=== PATIENT | female | born 1985 | race Caucasian/White ===

== ENCOUNTER → 2017-01-05 15:52 | Emergency (ER) | payer MEDICARE ==
[2017-01-05 16:04] VITALS: BP 134/76
== END | disposition home or self-care (01) ==
LOC: ED 15:52
DX: R60.9 Edema, unspecified (principal); Z53.21 Procedure and treatment not carried out due to patient leaving prior to being seen by health care provider

== ENCOUNTER 2017-01-07 08:10 | Emergency (ER) | payer MEDICARE ==
[2017-01-07] MEDS ORDERED: Ketorolac INJ* 30 MG/ML 1 ML VIAL IM ONE (09:30)
[2017-01-07] MEDS ORDERED: Cephalexin CAP* 500 MG PO ONE (09:31)
--- NOTE | 2017-01-07 09:41 | ED ---
Skin Complaint - HPI Summary HPI Summary: 31 female presents with complaints of a head abscess that has been on going for the past 5 days. Patient states she has a habit of "picking at her head" when she gets nervous. She has had similar symptoms to this in the past and diagnosed with MRSA. Patient seen at [facility] yesterday and given Bactrim. She has taken 1 days dose, and took one this morning. Patient denies fever/chills. Discharge at times. States the pain is unbearable. Her prescribed percocet for her back is not helping her. She describes the pain to be burning, sharp and on the entire right side of her head/face where wound is located. Admits to right ear pain and a swollen lymph node on the right side. No other complaints at this time. No other medical problems other than chronic back issues and anxiety. Denies rash elsewhere. Denies numbness/tingling, nausea/ vomiting. - History of Current Complaint Chief Complaint: EDGeneral Time Seen by Provider: 01/07/17 09:11 Stated Complaint: ABCESS ON HEAD Hx Obtained From: Patient Hx Last Menstrual Period: OBLATION--CURRENTLY SPOTTING Onset/Duration: Started Days Ago, Still Present, Worse Since Skin Exposure Onset/Duration: Days Ago Timing: Constant Onset Severity: Moderate Current Severity: Severe Pain Intensity: 10 Pain Scale Used: 0-10 Numeric Skin Location: Discrete - right posterior parietal lobe of head Character: Swelling, Pruritus, Redness, Raised, Painful Aggravating Symptom(s): Touch Alleviating Symptom(s): Nothing Associated Signs & Symptoms: Negative - Allergy/Home Medications Allergies/Adverse Reactions: Allergies Allergy/AdvReac Type Severity Reaction Status Date / Time Adhesive Tape Allergy Itching Verified 01/07/17 08:37 Home Medications: Home Medications Citalopram TAB* [Celexa TAB*] 1 tab PO DAILY 01/07/17 [History Confirmed ] Sulfamethox/Trimethoprim DS* [Bactrim DS 800/160 TAB*] 1 tab PO BID 01/07/17 [ History Confirmed 01/07/17] PMH/Surg Hx/FS Hx/Imm Hx Endocrine/Hematology History: Denies: Hx Diabetes Cardiovascular History: Denies: Hx Hypertension Respiratory History: Denies: Hx Asthma Musculoskeletal History: Reports: Hx Back Problems Psychiatric History: Reports: Hx Anxiety - Surgical History Surgery Procedure, Year, and Place: aBLATION. TUBAL LIGATION. GASTRIC BYPASS. tympanoplasty - Immunization History Immunizations Up to Date: Yes Infectious Disease History: Yes Infectious Disease History: Reports: Hx of Known/Suspected MRSA Denies: Traveled Outside the [place] in Last 30 Days - Family History Known Family History: Positive: None - Social History Alcohol Use: None Substance Use Type: Reports: None Smoking Status (MU): Never Smoked Tobacco Review of Systems Constitutional: Negative Positive: Other - right eye pain due to radiation of pain per patient Positive: Nasal Discharge - right nare congestion, Other - neck pain, right side , swollen lymph node due to infection on head per patient Cardiovascular: Negative Respiratory: Negative Gastrointestinal: Negative Positive: Rash - head abscess Neurological: Negative All Other Systems Reviewed And Are Negative: Yes Physical Exam Triage Information Reviewed: Yes Vital Signs On Initial Exam: Initial Vitals Temp Pulse Resp BP Pulse Ox 97.3 F 90 20 135/73 100 01/07/17 08:15 01/07/17 08:15 01/07/17 08:15 01/07/17 08:15 01/07/17 08:15 Vital Signs Reviewed: Yes Appearance: Positive: Well-Appearing, Pain Distress - mild to moderate with palpation of carbuncle Skin: Positive: Warm, Skin Color Reflects Adequate Perfusion, Dry, Erythema @ - appears to be a infected spider bite versus furuncle on posterior parietal of scalp with erythema. no discharge at this time, crusted at head. very firm and tender to touch. not warm. no fluctuance. about the size of a gracia. no rash or surrounding cellulitis elsewhere.. Negative: Numb, Soft, Pale Head/Face: Positive: Normal Head/Face Inspection, Scalp - read note above Eyes: Positive: EOMI, MIKE, Conjunctiva Clear ENT: Positive: Hearing grossly normal, Pharynx normal, Nasal congestion, TMs normal. Negative: Nasal drainage, TM bulging, TM dull, TM red - no rash in ears , scarring on TM patient had tubes as a child, Tonsillar swelling, Tonsillar exudate, Trismus, Muffled/hoarse voice Dental: Positive: Cervical Lymphadenopathy - right posterior cervical. Negative : Percussion Tenderness @ Neck: Positive: Supple, Nontender Respiratory/Lung Sounds: Positive: Clear to Auscultation, Breath Sounds Present. Negative: Rales, Rhonchi, Wheezes Cardiovascular: Positive: Normal, RRR, Pulses are Symmetrical in both Upper and Lower Extremities. Negative: Murmur, Rub Musculoskeletal: Positive: Normal, Strength/ROM Intact Neurological: Positive: Normal, Alert, Oriented to Person Place, Time, CN Intact II-III, NV Bundle Intact Distally, Normal Gait Psychiatric: Positive: Affect/Mood Appropriate, Anxious - [place] Coma Scale Best Eye Response: 4 - Spontaneous Best Motor Response: 6 - Obeys Commands Best Verbal Response: 5 - Oriented Coma Scale Total: 15 Diagnostics - Vital Signs Vital Signs Temp Pulse Resp BP Pulse Ox 01/07/17 08:30 90 126/73 98 01/07/17 08:29 94 97 01/07/17 08:28 124/79 01/07/17 08:21 99.0 F 93 16 124/79 100 01/07/17 08:15 97.3 F 90 20 135/73 100 - Laboratory Lab Statement: Any lab studies that have been ordered have been reviewed, and results considered in the medical decision making process. Course/Dx - Course Course Of Treatment: given pain management with toradol and dose of keflex while in ED. wound is not ready for I&D and may not be necessary. possibly infected spider bite versus furuncle, no fluctuance or drainage. unable to culture. with hx of MRSA continue bactrim given at [facility] and add keflex. continue tylenol and pain medication already prescribed for discomfort. educated on good hygeine, stop picking, keep covered if unable to stop picking at. warm compresses multiple times daily. follow up with pcp. aware of worsening signs and symptoms. no concern for other emergent etiology. does not appear to be a shingles, tinea, urticaria. normal PE findings other than infected wound/ furuncle. follow up within 3 days for recheck - Differential Diagnoses - Skin Complaint Differential Diagnoses: Abscess, Cellulitis, Contact Dermatitis, MRSA, Tinea - Diagnoses Provider Diagnoses: Infected wound, Furuncle of head or scalp Discharge - Discharge Plan Condition: Stable Disposition: HOME Prescriptions: Cephalexin CAP* [Keflex CAP*] 500 mg PO TID #20 cap Patient Education Materials: Furunculosis and Carbunculosis (ED), Warm Compress or Soak (ED) Referrals: Lorraine Carter MD [Primary Care Provider] - Additional Instructions: Continue taking bactrim as directed. Begin taking Keflex as well as directed. Do not miss a dose. Give 48-72 hours before improvement. Do not touch or pick at wound. Apply warm compresses multiple times daily as often as possible. Continue tylenol and pain medication for pain as needed. Keep good hygiene, gently wash area. Follow up with PCP or return for re-check in 3 days. RETURN TO THE EMERGENCY DEPARTMENT FOR WORSENING SYMPTOMS
[2017-01-07 11:38] VITALS: BP 118/74
== END 2017-01-07 11:35 | disposition home or self-care (01) ==
LOC: ED 08:10
DX: L02.821 Furuncle of head [any part, except face] (principal)
CPT/HCPCS: 96372; 99283; A9270-GY; J1885